=== PATIENT | female | born 1995 | race African-American/Black ===

== ENCOUNTER 2018-02-12 21:51 | Emergency (ER) | payer BC, MEDICAID ==
[2018-02-12 22:56] LABS: BASOPHIL % 0.3 % (0-2); PLATELET COUNT 252 x10^3mcL (130-400)
[2018-02-12 23:03] LABS: CALCIUM 8.4 mg/dL (8.5-10.1); CARBON DIOXIDE 25.4 mmol/L (21-32); CHLORIDE SERUM 104 mmol/L (98-107); CREATININE SERUM 0.7 mg/dL (0.6-1.0); GFR1 > 60 mL/min; GLUCOSE SERUM 106 mg/dL (74-106); POTASSIUM SERUM 3.3 mmol/L (3.5-5.1); SODIUM SERUM 138 mmol/L (136-145)
[2018-02-12 23:08] LABS: ALBUMIN 3.6 g/dL (3.4-5.0); ALKALINE PHOSPHATASE 60 U/L (46-116); ALT/SGPT 17 U/L (14-59); AST/SGOT 13 U/L (15-37); BILIRUBIN TOTAL 0.2 mg/dL (0.20-1.00); LIPASE 190 IU/L (73-393); TOTAL PROTEIN, SERUM 7.8 g/dL (6.4-8.2)
[2018-02-13 00:16] VITALS: BP 99/63
== END 2018-02-13 00:16 | disposition home or self-care (01) ==
LOC: ED 21:51
PROVIDERS: Emergency Medicine
DX: N39.0 Urinary tract infection, site not specified (principal)
CPT/HCPCS: 36415

== ENCOUNTER 2019-04-13 16:05 | Emergency (ER) | payer MEDICAID ==
[~2019-04-13] VITALS: Ht 152.4 cm; Wt 43.2 kg
[2019-04-13 16:27] VITALS: Ht 152.4 cm; Wt 43.2 kg
[2019-04-13 16:54] LABS: BASOPHIL % 0.5 % (0-2); PLATELET COUNT 312 x10^3mcL (130-400); RED CELL DISTRIBUTION WIDTH 14.5 % (11.5-14.5)
[2019-04-13 17:02] LABS: CARBON DIOXIDE 26.1 mmol/L (21-32); CHLORIDE SERUM 103 mmol/L (98-107); CREATININE SERUM 0.5 mg/dL (0.6-1.0); GFR1 > 60 mL/min; GLUCOSE SERUM 94 mg/dL (74-106); POTASSIUM SERUM 3.5 mmol/L (3.5-5.1); SODIUM SERUM 137 mmol/L (136-145)
[2019-04-13 17:13] LABS: ALKALINE PHOSPHATASE 57 U/L (46-116); ALT/SGPT 46 U/L (14-59); AST/SGOT 22 U/L (15-37); BILIRUBIN TOTAL 0.13 mg/dL (0.20-1.00); TOTAL PROTEIN, SERUM 6.7 g/dL (6.4-8.2)
[2019-04-13 17:14] LABS: ALBUMIN 2.5 g/dL (3.4-5.0)
[2019-04-13 20:34] VITALS: BP 99/66
== END 2019-04-13 20:34 | disposition home or self-care (01) ==
LOC: ED 16:05
PROVIDERS: Emergency Medicine
DX: O26.892 Other specified pregnancy related conditions, second trimester (principal); R10.813 Right lower quadrant abdominal tenderness; R10.9 Unspecified abdominal pain; Z3A.20 20 weeks gestation of pregnancy; X50.0XXA Overexertion from strenuous movement or load, initial encounter; Y93.89 Activity, other specified; Y92.89 Other specified places as the place of occurrence of the external cause; Y99.0 Civilian activity done for income or pay
CPT/HCPCS: 36415; Q0092